=== PATIENT | male | born 1950 | race Caucasian/White ===

== ENCOUNTER 2017-02-09 01:11 | Inpatient (IN) | payer OTHER ==
[2017-02-09] VITALS (8 sets, daily range): BP systolic 75–107; BP diastolic 44–71
[~2017-02-09] VITALS: Ht 188 cm; Wt 76.2 kg
[2017-02-09 02:35] LABS: BASOPHIL % 1.1 % (0-2)
[2017-02-09 02:39] LABS: PLATELET COUNT 29 x10^3mcL (130-400); RED CELL DISTRIBUTION WIDTH 14.9 % (11.5-14.5)
[2017-02-09 02:59] LABS: ALKALINE PHOSPHATASE 73 U/L (46-116); ALT/SGPT 17 U/L (16-63); AST/SGOT 25 U/L (15-37); BILIRUBIN TOTAL 1.25 mg/dL (0.20-1.00); CALCIUM 7.6 mg/dL (8.5-10.1); CARBON DIOXIDE 24.8 mmol/L (21-32); CHLORIDE SERUM 107 mmol/L (98-107); CREATININE SERUM 0.6 mg/dL (0.7-1.3); GFR1 > 60 mL/min; POTASSIUM SERUM 3.9 mmol/L (3.5-5.1); SODIUM SERUM 140 mmol/L (136-145)
[2017-02-09 03:05] LABS: ALBUMIN 1.2 g/dL (3.4-5.0); CHOLESTEROL 60 mg/dL (<200); HDL CHOLESTEROL 23 mg/dL (40-60); TOTAL PROTEIN, SERUM 4.5 g/dL (6.4-8.2)
[2017-02-09 03:07] LABS: GLUCOSE SERUM 52 mg/dL (74-106)
[2017-02-09] MEDS ORDERED: ATIVAN0.5 M1 PO ×2 (05:26→05:27)
[2017-02-09] MEDS ORDERED: MORL PO (05:29)
[2017-02-09] MEDS ORDERED: SILTUSSIN100 MG/51 PO (05:30)
[2017-02-09 06:00] LABS: MAGNESIUM 1.6 mg/dL (1.8-2.4); PHOSPHOROUS 3.1 mg/dL (2.5-4.9)
[2017-02-09 06:01] LABS: T3 TOTAL 0.24 ng/mL
[2017-02-09 06:03] LABS: CHOLESTEROL/HDL RATIO 2.7
[2017-02-09 06:07] LABS: FREE T4 0.91 ng/dL (0.76-1.46)
[2017-02-09 06:08] LABS: FREE THYROXINE INDEX 1.2 ug/dL (1.4-4.5); T4(THYROXINE) 2.9 ug/dL (4.7-13.3)
[2017-02-10 00:03] VITALS: BP 92/58
[2017-02-10 05:55] VITALS: BP 102/62
[2017-02-10 10:00] VITALS: BP 94/48
[2017-02-10 10:31] LABS: RED CELL DISTRIBUTION WIDTH 15.7 % (11.5-14.5)
[2017-02-10 10:35] LABS: ALKALINE PHOSPHATASE 46 U/L (46-116); ALT/SGPT 13 U/L (16-63); AST/SGOT 45 U/L (15-37); BILIRUBIN TOTAL 1.03 mg/dL (0.20-1.00); CALCIUM 7.4 mg/dL (8.5-10.1); CARBON DIOXIDE 20.8 mmol/L (21-32); CHLORIDE SERUM 113 mmol/L (98-107); GFR1 > 60 mL/min; GLUCOSE SERUM 135 mg/dL (74-106); POTASSIUM SERUM 3.8 mmol/L (3.5-5.1); SODIUM SERUM 144 mmol/L (136-145)
[2017-02-10 10:38] LABS: ALBUMIN 0.9 g/dL (3.4-5.0); TOTAL PROTEIN, SERUM 3.7 g/dL (6.4-8.2)
[2017-02-10 11:48] LABS: PLATELET COUNT 8 x10^3mcL (130-400)
[2017-02-10 11:49] LABS: BAND NEUTROPHIL 17 % (0-10); METAMYELOCTE 1 % (0-2); MONOCYTE 1 % (0-7); MYELOCYTE 1 % (0-2); SEGMENTED NEUTROPHILS 68 % (37-75); rbc morphology (normal/abnorm) ABNORMAL (NORMAL)
[2017-02-10 11:50] LABS: PLATELET MORPHOLOGY PLATELETS DECREASED
== END 2017-02-10 17:00 | disposition expired | DRG 177 ==
LOC: ED 01:11 → DU 04:49
PROVIDERS: Emergency Medicine; ADMIT Family Medicine
DX: J69.0 Pneumonitis due to inhalation of food and vomit (principal); G93.41 Metabolic encephalopathy; E43 Unspecified severe protein-calorie malnutrition; N17.0 Acute kidney failure with tubular necrosis; C18.9 Malignant neoplasm of colon, unspecified; C78.7 Secondary malignant neoplasm of liver and intrahepatic bile duct; C78.6 Secondary malignant neoplasm of retroperitoneum and peritoneum; C79.02 Secondary malignant neoplasm of left kidney and renal pelvis; C79.01 Secondary malignant neoplasm of right kidney and renal pelvis; E16.2 Hypoglycemia, unspecified; I10 Essential (primary) hypertension; Z66 Do not resuscitate; Z51.5 Encounter for palliative care; Z92.21 Personal history of antineoplastic chemotherapy
CPT/HCPCS: 83880; 84439; J0461; J0696; J2270; J2405; J2543; J3490; J7030; J7042; J7620; Q0092